=== PATIENT | female | born 1985 | race Two or more races ===

== ENCOUNTER 2023-06-07 17:16 | Emergency (ER) | payer BC ==
[~2023-06-07] VITALS: Ht 167.6 cm; Wt 68.0 kg
[2023-06-07] MEDS ORDERED: TDAP [DIPH/PERTUSSIS/TET] 0.5 ML VIAL IM ONE (17:51)
[2023-06-07] MEDS: TDAP [DIPH/PERTUSSIS/TET] 0.5 ML VIAL IM ONE (17:55)
[2023-06-07] MEDS: BACI/NEOM/POLY B OINT PKT 1 UDPKT PACKET TP ONE (17:56)
[2023-06-07 18:07] VITALS: BP 124/100; TEMP 98.2; O2SAT 98
== END 2023-06-07 18:07 | disposition home or self-care (01) ==
LOC: ER 17:23
DX: S61.311A Laceration without foreign body of left index finger with damage to nail, initial encounter (principal); W26.8XXA Contact with other sharp object(s), not elsewhere classified, initial encounter; Y93.89 Activity, other specified; Y92.89 Other specified places as the place of occurrence of the external cause; Y99.8 Other external cause status
CPT/HCPCS: 90715